=== PATIENT | female | born 1950 | race Caucasian/White ===

== ENCOUNTER 2020-10-25 08:57 | Emergency (ER) | payer SELFPAY ==
[~2020-10-25 08:57] MED LIST: ARMOUR THYROID90 MG PO; ASPIRIN EC81 MG PO; DAILY MULTIPLE1 EAC1 PO; JANTOVEN1 MG PO
[2020-10-25 10:44] LABS: RED BLOOD COUNT 4.66 M/UL (4.00-5.10); WHITE BLOOD COUNT 5.4 K/UL (4.5-11.0)
[2020-10-25 11:11] LABS: BUN/CREATININE RATIO 19 (0-10)
== END 2020-10-25 13:50 | disposition home or self-care (01) ==
LOC: ER1 08:57
PROVIDERS: Physician Assistant
DX: R07.89 Other chest pain (principal); J98.11 Atelectasis; Z86.718 Personal history of other venous thrombosis and embolism; Z86.711 Personal history of pulmonary embolism; Z91.041 Radiographic dye allergy status
CPT/HCPCS: 36415; 71045; 80053; 82550; 82553; 83874; 84484; 85025; 85610; 85730; 93005; 99285